=== PATIENT | male | born 1955 | race Caucasian/White ===

== ENCOUNTER 2017-06-06 07:47 | Day surgery (SDC) | payer OTHER ==
[~2017-06-06 07:47] MED LIST: Lactated Ringers 1,000 ML IV SCH; Sodium Chloride 0.9% 10 ML Syringe FLUSH PRN; Sodium Chloride 0.9% 2.5 ML Syringe FLUSH PRN
[2017-06-06] MEDS ORDERED: Propofol 200 MG/20 ML SDV ONE (08:24)
[2017-06-06] MEDS ORDERED: Lidocaine 2% 5 ML SDV ONE (08:24)
--- NOTE | 2017-06-06 08:38 | PCM.PREANE ---
Preanesthetic Assessment - Procedure Proposed Procedure: Colonoscopy - Anesthesia/Transfusion/Family Hx Anesthesia History: Prior Anesthesia Without Reaction Family History of Anesthesia Reaction: No Transfusion History: No Prior Transfusion(s) Intubation History: Unknown - Review of Systems General: No Symptoms Pulmonary: Other (sleep apnea) Cardiovascular: Other (HTN - onvalsartan/HCTZ + KCL, dyslipidemia) Gastrointestinal: Other (polyp in past) Neurological: No Symptoms Other: Reports: Diabetes (type II on meformin, invokana) - Physical Assessment NPO Status Date: 06/05/17 NPO Status Time: 22:00 O2 Sat by Pulse Oximetry: 96 Respiratory Rate: 16 Vital Signs: Last Vital Signs Temp 97.7 F 06/06/17 08:25 Pulse 74 06/06/17 08:25 Resp 16 06/06/17 08:25 BP 141/84 H 06/06/17 08:25 Pulse Ox 96 06/06/17 08:25 Height: 6 ft Weight: 228 lb ASA Class: 3 Mental Status: Alert & Oriented x3 Dentition: Reports: Normal Dentition Thyro-Mental Finger Breadths: 3 Mouth Opening Finger Breadths: 3 ROM/Head Extension: Full Lungs: Clear to Auscultation, Normal Respiratory Effort Cardiovascular: Regular Rate, Regular Rhythm, No Murmurs - Allergies Allergies/Adverse Reactions: Allergies Allergy/AdvReac Type Severity Reaction Status Date / Time dashawn inhibitors Allergy Cough Uncoded 06/01/17 09:25 - Blood Blood Available: No Product(s) Available: None - Anesthesia Plan Pre-Op Medication Ordered: None - Acknowledgements Anesthesia Type Planned: MAC Pt an Appropriate Candidate for the Planned Anesthesia: Yes Alternatives and Risks of Anesthesia Discussed w Pt/Guardian: Yes Pt/Guardian Understands and Agrees with Anesthesia Plan: Yes PreAnesthesia Questionnaire Other HEENT History: wears glasses Cardiovascular History: Reports: Hypertension Respiratory History: Reports: Sleep Apnea Other Respiratory History: uses CPAP Gastrointestinal History: Reports: Colon Polyp Musculoskeletal History: Reports: Fracture Other Musculoskeletal History: hx of fx ankle, toe, finger Endocrine/Metabolic History: Reports: Diabetes, Type II Dermatologic History: Reports: Other (See Below) Other Dermatologic History: rash on back - Past Surgical History HEENT Surgical History: Reports: Adenoidectomy, Tonsillectomy GI Surgical History: Reports: Colonoscopy Musculoskeletal Surgical History: Reports: Arthroscopic Knee - SUBSTANCE USE Smoking Status *Q: Never Smoker Second Hand Smoke Exposure: No Days Per Week of Alcohol Use: 2 Number of Drinks Per Day: 1 Total Drinks Per Week: 2 Recreational Drug Use History: No - HOME MEDS Home Medications: Home Meds Aspirin [[place] Aspirin] 81 mg PO DAILY 06/04/14 [History] Potassium Chloride [K-Tab ER] 20 mg PO DAILY 06/04/14 [History] Valsartan/Hydrochlorothiazide [Valsartan-Hctz 160-12.5 mg Tab] 1 tab PO DAILY [History] metFORMIN [Glucophage] 1,000 mg PO BID 06/04/14 [History] Canagliflozin [Invokana] 300 mg PO QAM 06/01/17 [History] Clotrimazole/Betamethasone Dip [Lotrisone Cream] 1 applic TOP BID PRN 06/01/17 [ History] Glucosamine/D3/Boswellia Stacy [Osteo Bi-Flex Tablet] 2 tab PO DAILY 06/01/17 [ History] Magnesium 250 mg PO DAILY 06/01/17 [History] Multivitamin [Men's Multi-Vitamin] 1 tab PO DAILY 06/01/17 [History] Tadalafil [Cialis] 10 - 20 mg PO ASDIRECTED PRN 06/01/17 [History] metFORMIN HCl [Metformin HCl] 1,000 mg PO BIDMEALS 06/01/17 [History] - CURRENT (IN HOUSE) MEDS Current Meds: Current Medications Lactated Ringer's (Ringers, Lactated) 1,000 mls @ 125 mls/hr IV ASDIRECTED TRU Last Admin: 06/06/17 08:20 Dose: 125 mls/hr Sodium Chloride (Saline Flush) 10 ml FLUSH ASDIRECTED PRN PRN Reason: Keep Vein Open Sodium Chloride (Saline Flush) 2.5 ml FLUSH ASDIRECTED PRN PRN Reason: Keep Vein Open Discontinued Medications Lidocaine (Xylocaine-Mpf 2%) Confirm Administered Dose 5 ml .ROUTE .STK-MED ONE Stop: 06/06/17 08:25 Propofol (Diprivan 20 Ml) Confirm Administered Dose 400 mg .ROUTE .STK-MED ONE Stop: 06/06/17 08:25
--- NOTE | 2017-06-06 09:58 | PCM.OPNOTE ---
- General Post-Op/Procedure Note Date of Surgery/Procedure: 06/06/17 Operative Procedure(s): Screening colonoscopy Findings: Diverticulosis Pre Op Diagnosis: History of colon polyp Post-Op Diagnosis: Diverticulosis Anesthesia Technique: General ET Tube Primary Surgeon: Nataly So Condition: Good
--- NOTE | 2017-06-06 10:25 | OR ---
SURGEON: KINGS CARBAJAL MD DATE OF PROCEDURE: 06/06/2017 PREOPERATIVE DIAGNOSIS: History of colon polyps. POSTOPERATIVE DIAGNOSIS: Diverticulosis. PROCEDURE PERFORMED: Screening colonoscopy. ANESTHESIA: MAC. INSTRUMENT USED: Olympus colonoscope. EXTENT OF EXAM: To the cecum. PREPARATION: Good. LIMITATIONS: None. INDICATIONS: The patient is a 61-year-old male, who presents for a 5-year followup. He was diagnosed with a colon tubular adenoma on his first colonoscopy at the age of 49. His followup colonoscopy at 54 was normal. He has had no changes in his bowel habits. We discussed the procedure, expected perioperative course, and risks including bleeding, infection, and/or perforation. The patient verbalized understanding and wishes to proceed. PROCEDURE IN DETAIL: The patient was brought into the endoscopy suite and placed in the left lower decubitus position. A time-out was completed verifying the patient's name, age, date of , allergies, and procedure to be performed. Monitored anesthesia care was induced and continuous oxygen was provided via nasal cannula throughout the procedure. After adequate sedation was achieved, a digital rectal exam was performed. This exam was within normal limits. A well-lubricated colonoscope was inserted into the rectum and advanced under direct visualization to the level of cecum. Cecum was identified by both visual and anatomic landmarks. A photograph was taken of the cecal cap as well as with the scope retroflexed within the cecum. The scope was then straightened out and fully withdrawn while examining the color, texture, anatomy, and integrity of the mucosa from the cecum to the anal canal. The patient was found to have diverticulosis throughout the distal colon. The scope was then brought into the rectum and retroflexed to allow visualization of the anal canal opening. This appeared normal and a photograph was taken. The scope was then straightened out and removed from the patient. The cecum to anus time was 9 minutes. The patient tolerated the procedure well and was taken to PACU in stable condition. ENDOSCOPIC DIAGNOSIS: Diverticulosis. RECOMMENDATIONS: Follow up in clinic in 2 weeks. NOAH WASHINGTON /[id number]
== END 2017-06-06 10:31 | disposition home or self-care (01) ==
LOC: MW.SDS 07:47
PROVIDERS: ATTEND Surgery
DX: Z12.11 Encounter for screening for malignant neoplasm of colon (principal); K57.30 Diverticulosis of large intestine without perforation or abscess without bleeding; I10 Essential (primary) hypertension; G47.31 Primary central sleep apnea; E11.9 Type 2 diabetes mellitus without complications; E66.9 Obesity, unspecified; Z68.31 Body mass index [BMI] 31.0-31.9, adult; N52.9 Male erectile dysfunction, unspecified; N17.9 Acute kidney failure, unspecified; B35.4 Tinea corporis; Z91.048 Other nonmedicinal substance allergy status; Z88.8 Allergy status to other drugs, medicaments and biological substances; Z79.82 Long term (current) use of aspirin; Z79.84 Long term (current) use of oral hypoglycemic drugs; Z79.899 Other long term (current) drug therapy; Z86.010 Personal history of colon polyps; Z90.89 Acquired absence of other organs; Z98.890 Other specified postprocedural states
CPT/HCPCS: 45378; J7120; 00810; 82962; J2704

== ENCOUNTER 2018-08-25 19:08 | Emergency (ER) | payer OTHER ==
[2018-08-25] MEDS ORDERED: Diphtheria,Pertussis(Acell),Tetanus Vaccine 0.5 ML Syringe ONE (19:44)
--- NOTE | 2018-08-25 19:50 | EDM.PDOC ---
ED HPI GENERAL MEDICAL PROBLEM - General Chief Complaint: Laceration Stated Complaint: CUT ON THUMB Time Seen by Provider: 08/25/18 19:39 - History of Present Illness INITIAL COMMENTS - FREE TEXT/NARRATIVE: HISTORY AND PHYSICAL: History of present illness: Patient 62-year-old white male presents with a concern of laceration to his first digit of his right hand he denies up-to-date tetanus he denies other trauma or concern Review of systems: As per history of present illness and below otherwise all systems reviewed and negative. Past medical history: As per history of present illness and as reviewed below otherwise noncontributory. Surgical history: As per history of present illness and as reviewed below otherwise noncontributory. Social history: No reported history of drug or alcohol abuse. Family history: As per history of present illness and as reviewed below otherwise noncontributory. Physical exam: HEENT: Atraumatic, normocephalic, pupils reactive, negative for conjunctival pallor or scleral icterus, mucous membranes moist, throat clear, neck supple, nontender, trachea midline. Lungs: Clear to auscultation, breath sounds equal bilaterally, chest nontender. Heart: S1S2, regular, negative for clicks, rubs, or JVD. Abdomen: Soft, nondistended, nontender. Negative for masses or hepatosplenomegaly. Negative for costovertebral tenderness. Pelvis: Stable nontender. Genitourinary: Deferred. Rectal: Deferred. Extremities: Patient has approximately 1.5 cm moderate laceration on the radial aspect of his first digit is no tendon involvement CMS neurovascular is unremarkable was good hemostasis Neuro: Awake, alert, oriented. Cranial nerves II through XII unremarkable. Cerebellum unremarkable. Motor and sensory unremarkable throughout. Exam nonfocal. Diagnostics: None Therapeutics: Tetanus was updated patient was anesthetized 1% lidocaine without epinephrine irrigated with copious amount 0.9 normal saline and closed with 4-0 nylon interrupted suture bacitracin was applied Impression: #1 right hand injury (laceration) Definitive disposition and diagnosis as appropriate pending reevaluation and review of above. - Related Data Allergies Allergy/AdvReac Type Severity Reaction Status Date / Time dashawn inhibitors Allergy Cough Uncoded 06/01/17 09:25 Home Meds: Home Meds Aspirin [[place] Aspirin] 81 mg PO DAILY 06/04/14 [History] Potassium Chloride [K-Tab ER] 20 mg PO DAILY 06/04/14 [History] Valsartan/Hydrochlorothiazide [Valsartan-Hctz 160-12.5 mg Tab] 1 tab PO DAILY [History] metFORMIN [Glucophage] 1,000 mg PO BID 06/04/14 [History] Canagliflozin [Invokana] 300 mg PO QAM 06/01/17 [History] Clotrimazole/Betamethasone Dip [Lotrisone Cream] 1 applic TOP BID PRN 06/01/17 [ History] Glucosamine/D3/Boswellia Stacy [Osteo Bi-Flex Tablet] 2 tab PO DAILY 06/01/17 [ History] Magnesium 250 mg PO DAILY 06/01/17 [History] Multivitamin [Men's Multi-Vitamin] 1 tab PO DAILY 06/01/17 [History] Tadalafil [Cialis] 10 - 20 mg PO ASDIRECTED PRN 06/01/17 [History] metFORMIN HCl [Metformin HCl] 1,000 mg PO BIDMEALS 06/01/17 [History] Past Medical History Other HEENT History: wears glasses Cardiovascular History: Reports: Hypertension Respiratory History: Reports: Sleep Apnea Other Respiratory History: uses CPAP Gastrointestinal History: Reports: Colon Polyp Musculoskeletal History: Reports: Fracture Other Musculoskeletal History: hx of fx ankle, toe, finger Endocrine/Metabolic History: Reports: Diabetes, Type II Dermatologic History: Reports: Other (See Below) Other Dermatologic History: rash on back - Past Surgical History HEENT Surgical History: Reports: Adenoidectomy, Tonsillectomy GI Surgical History: Reports: Colonoscopy Musculoskeletal Surgical History: Reports: Arthroscopic Knee ED ROS GENERAL - Review of Systems Review Of Systems: ROS reveals no pertinent complaints other than HPI. ED EXAM, SKIN/RASH Exam: See Below (See dictation) Course - Orders/Labs/Meds Meds: Medications Discontinued Medications Generic Name Dose Route Start Last Admin Trade Name Freq PRN Reason Stop Dose Admin Diphtheria/Tetanus/Acell Pertussis Confirm 08/25/18 19:44 Adacel Administered 08/25/18 19:45 Dose 0.5 ml .ROUTE .STK-MED ONE Lidocaine HCl Confirm 08/25/18 19:43 Xylocaine-Mpf 1% Administered 08/25/18 19:44 Dose 5 mls @ as directed .ROUTE .STK-MED ONE Departure - Departure Time of Disposition: 19:49 Disposition: Home, Self-Care 01 Condition: Good Clinical Impression: Hand injury - Discharge Information Referrals: PCP,Unknown [Primary Care Provider] - Additional Instructions: The following information is given to patients seen in the emergency department who are being discharged to home. This information is to outline your options for follow-up care. We provide all patients seen in our emergency department with a follow-up referral. The need for follow-up, as well as the timing and circumstances, are variable depending upon the specifics of your emergency department visit. If you don't have a primary care physician on staff, we will provide you with a referral. We always advise you to contact your personal physician following an emergency department visit to inform them of the circumstance of the visit and for follow-up with them and/or the need for any referrals to a consulting specialist. The emergency department will also refer you to a specialist when appropriate. This referral assures that you have the opportunity for followup care with a specialist. All of these measure are taken in an effort to provide you with optimal care, which includes your followup. Under all circumstances we always encourage you to contact your private physician who remains a resource for coordinating your care. When calling for followup care, please make the office aware that this follow-up is from your recent emergency room visit. If for any reason you are refused follow-up, please contact the [facility] emergency department at and asked to speak to the emergency department charge nurse. Wound care is discussed suture removal 10-14 days return as needed as discussed
[2018-08-25] MEDS ORDERED: Lidocaine HCl/PF 10 MG/ML SDV INJECT ONE (19:56)
[2018-08-25] MEDS ORDERED: Bacitracin Oint 1 GM U/D Packet TOP ONE (20:00)
== END 2018-08-25 20:10 | disposition home or self-care (01) ==
LOC: MW.ED 19:08
DX: S61.210A Laceration without foreign body of right index finger without damage to nail, initial encounter (principal); W45.8XXA Other foreign body or object entering through skin, initial encounter
CPT/HCPCS: 12001; 90471; 90715; 99282; J2001

== ENCOUNTER 2019-05-15 06:43 | Observation (INO) | payer OTHER ==
[~2019-05-15 06:43] MED LIST changes: -Sodium Chloride 0.9% 10 ML Syringe FLUSH PRN; -Sodium Chloride 0.9% 2.5 ML Syringe FLUSH PRN; +ceFAZolin 2 GM in Premix Bag 1 BAG IV ONE
[2019-05-15] MEDS ORDERED: fentaNYL 100 MCG/2 ML SDV ONE (07:13)
[2019-05-15] MEDS ORDERED: Midazolam 1 MG/ML 2 ML SDV ONE (07:13)
[2019-05-15] MEDS ORDERED: Propofol 200 MG/20 ML SDV ONE ×2 (07:13→09:13)
[2019-05-15] MEDS ORDERED: Ondansetron 4 MG/2 ML SDV ONE (07:22)
--- NOTE | 2019-05-15 07:39 | PCM.PREANE ---
Preanesthetic Assessment - Anesthesia/Transfusion/Family Hx Anesthesia History: Prior Anesthesia Without Reaction Family History of Anesthesia Reaction: No Transfusion History: No Prior Transfusion(s) Intubation History: Unknown - Review of Systems General: No Symptoms Pulmonary: No Symptoms Cardiovascular: No Symptoms Gastrointestinal: No Symptoms Neurological: No Symptoms Other: Reports: None - Physical Assessment NPO Status Date: 05/14/19 NPO Status Time: 22:00 Vital Signs: Last Vital Signs Temp 98.4 F 05/15/19 06:50 Pulse 76 05/15/19 06:50 Resp 18 05/15/19 06:50 BP 144/88 H 05/15/19 06:50 Pulse Ox 94 L 05/15/19 06:50 Height: 6 ft Weight: 103.419 kg ASA Class: 3 Mental Status: Alert & Oriented x3 Airway Class: Mallampati = 1 Dentition: Reports: Normal Dentition ROM/Head Extension: Full Lungs: Clear to Auscultation, Normal Respiratory Effort Cardiovascular: Regular Rate, Regular Rhythm - Allergies Allergies/Adverse Reactions: Allergies Allergy/AdvReac Type Severity Reaction Status Date / Time dashawn inhibitors Allergy Cough Uncoded 05/13/19 10:23 - Blood Blood Available: No - Anesthesia Plan Pre-Op Medication Ordered: None - Acknowledgements Anesthesia Type Planned: Spinal Pt an Appropriate Candidate for the Planned Anesthesia: Yes Alternatives and Risks of Anesthesia Discussed w Pt/Guardian: Yes Pt/Guardian Understands and Agrees with Anesthesia Plan: Yes Additional Comments: PMH: no CAD, neg cath last year, has CENTRAL sleep apnea, uses Bipap every night PLAN: spinal; with sedation PreAnesthesia Questionnaire HEENT History: Reports: Other (See Below) Other HEENT History: wears glasses Cardiovascular History: Reports: Hypertension, Other (See Below) Other Cardiovascular History: hx of Angiogram- no stents Respiratory History: Reports: Sleep Apnea Other Respiratory History: Central Sleep Apnea- uses CPAP Gastrointestinal History: Reports: Colon Polyp, Diverticulosis Genitourinary History: Reports: BPH, Renal Calculus Musculoskeletal History: Reports: Fracture Other Musculoskeletal History: hx of fx ankle x2, arthritis in hands Endocrine/Metabolic History: Reports: Diabetes, Type II, Obesity/BMI 30+ Dermatologic History: Reports: Other (See Below) Other Dermatologic History: currently has a rash on his back- thinks it is from medications - Past Surgical History Head Surgeries/Procedures: Reports: None HEENT Surgical History: Reports: Adenoidectomy, Tonsillectomy GI Surgical History: Reports: Colonoscopy Musculoskeletal Surgical History: Reports: Arthroscopic Knee - SUBSTANCE USE Smoking Status *Q: Never Smoker Recreational Drug Use History: No - HOME MEDS Home Medications: Home Meds Aspirin [[place] Aspirin] 81 mg PO DAILY 06/04/14 [History] Potassium Chloride [K-Tab ER] 20 mg PO DAILY 06/04/14 [History] Valsartan/Hydrochlorothiazide [Valsartan-Hctz 160-12.5 mg Tab] 1 tab PO DAILY [History] metFORMIN [Glucophage] 1,000 mg PO BID 06/04/14 [History] Glucosamine/D3/Boswellia Stacy [Osteo Bi-Flex Tablet] 2 tab PO DAILY 06/01/17 [ History] Magnesium 250 mg PO DAILY 06/01/17 [History] Multivitamin [Men's Multi-Vitamin] 1 tab PO DAILY 06/01/17 [History] Tadalafil [Cialis] 20 mg PO ASDIRECTED PRN 06/01/17 [History] Empagliflozin [Jardiance] 25 mg PO QAM 05/13/19 [History] Naproxen Sodium [Aleve] 220 mg PO BID 05/13/19 [History] Pioglitazone HCl 15 mg PO DAILY 05/13/19 [History] Tamsulosin HCl 0.4 mg PO BEDTIME 05/13/19 [History] - CURRENT (IN HOUSE) MEDS Current Meds: Current Medications Lactated Ringer's (Ringers, Lactated) 1,000 mls @ 100 mls/hr IV ASDIRECTED TRU Last Admin: 05/15/19 07:10 Dose: 100 mls/hr Discontinued Medications Fentanyl (Sublimaze) Confirm Administered Dose 100 mcg .ROUTE .STK-MED ONE Stop: 05/15/19 07:14 Cefazolin Sodium/Dextrose 2 gm (/ Premix) 50 mls @ 100 mls/hr IV ONCALL ONE Stop: 05/15/19 00:30 Lidocaine HCl (Xylocaine-Mpf 1%) Confirm Administered Dose 5 ml .ROUTE .STK-MED ONE Stop: 05/15/19 07:17 Midazolam HCl (Versed 1 Mg/Ml) Confirm Administered Dose 2 mg .ROUTE .STK-MED ONE Stop: 05/15/19 07:14 Ondansetron HCl (Zofran) Confirm Administered Dose 4 mg .ROUTE .STK-MED ONE Stop: 05/15/19 07:23 Propofol (Diprivan 20 Ml) Confirm Administered Dose 600 mg .ROUTE .STK-MED ONE Stop: 05/15/19 07:14
[2019-05-15] MEDS ORDERED: ceFAZolin 1 GM Vial ONE (07:55)
[2019-05-15] MEDS ORDERED: Sodium Chloride 0.9% 20 ML ONE (07:55)
[2019-05-15] MEDS ORDERED: ePHEDrine 50 MG/ML SDV ONE (08:37)
[2019-05-15] MEDS ORDERED: Belladonna Alkaloids/Opium 16.2-30 MG Supp RECTAL PRN (09:52)
[2019-05-15] MEDS ORDERED: D5 1/2 NS w/ 20 mEq/L KCl 1,000 ML IV SCH (10:00)
[2019-05-15] MEDS ORDERED: Lactated Ringers 1,000 ML IV SCH (10:15)
[2019-05-15 10:38] LABS: POTASSIUM,K 4.4 mmol/L (3.5-5.1)
--- NOTE | 2019-05-15 11:36 | PCM.POSTAN ---
POST ANESTHESIA ASSESSMENT - MENTAL STATUS Mental Status: Alert, Oriented - VITAL SIGNS Vital Signs: Last Vital Signs Temp 98.2 F 05/15/19 09:49 Pulse 62 05/15/19 10:14 Resp 10 L 05/15/19 10:14 BP 122/77 05/15/19 10:14 Pulse Ox 99 05/15/19 10:14 - RESPIRATORY Respiratory Status: Respiratory Rate WNL, Airway Patent, O2 Saturation Stable - CARDIOVASCULAR CV Status: Pulse Rate WNL, Blood Pressure Stable - GASTROINTESTINAL GI Status: No Symptoms - POST OP HYDRATION Hydration Status: Adequate & Stable
--- NOTE | 2019-05-15 13:24 | PCM.CONS ---
H&P History of Present Illness - General Date of Service: 05/15/19 Admit Problem/Dx: Admission Diagnosis/Problem Admission Diagnosis/Problem Urinary retention due to benign prostatic hyperplasia - History of Present Illness Initial Comments - Free Text/Narative: 63 yo male with pmh of BPH, type 2 DM, HTN, and central sleep apnea who underwent TURP by Dr. Askew today. He reports he was in his usual stat of health prior to the procedure. 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 - Related Data Allergies/Adverse Reactions: Allergies Allergy/AdvReac Type Severity Reaction Status Date / Time dashawn inhibitors Allergy Cough Uncoded 05/15/19 12:01 Home Medications: Home Meds Aspirin [[place] Aspirin] 81 mg PO DAILY 06/04/14 [History] Potassium Chloride [K-Tab ER] 20 mg PO DAILY 06/04/14 [History] Valsartan/Hydrochlorothiazide [Valsartan-Hctz 160-12.5 mg Tab] 1 tab PO DAILY [History] metFORMIN [Glucophage] 1,000 mg PO BID 06/04/14 [History] Glucosamine/D3/Boswellia Stacy [Osteo Bi-Flex Tablet] 2 tab PO DAILY 06/01/17 [ History] Magnesium 250 mg PO DAILY 06/01/17 [History] Multivitamin [Men's Multi-Vitamin] 1 tab PO DAILY 06/01/17 [History] Tadalafil [Cialis] 20 mg PO ASDIRECTED PRN 06/01/17 [History] Empagliflozin [Jardiance] 25 mg PO QAM 05/13/19 [History] Naproxen Sodium [Aleve] 220 mg PO BID 05/13/19 [History] Pioglitazone HCl 15 mg PO DAILY 05/13/19 [History] Tamsulosin HCl 0.4 mg PO BEDTIME 05/13/19 [History] Past Medical History HEENT History: Reports: Other (See Below) Other HEENT History: wears glasses Cardiovascular History: Reports: Hypertension, Other (See Below) Other Cardiovascular History: hx of Angiogram- no stents Respiratory History: Reports: Sleep Apnea Other Respiratory History: Central Sleep Apnea- uses CPAP Gastrointestinal History: Reports: Colon Polyp, Diverticulosis Genitourinary History: Reports: BPH, Renal Calculus Musculoskeletal History: Reports: Fracture Other Musculoskeletal History: hx of fx ankle x2, arthritis in hands Endocrine/Metabolic History: Reports: Diabetes, Type II, Obesity/BMI 30+ Dermatologic History: Reports: Other (See Below) Other Dermatologic History: currently has a rash on his back- thinks it is from medications - Past Surgical History Head Surgeries/Procedures: Reports: None HEENT Surgical History: Reports: Adenoidectomy, Tonsillectomy GI Surgical History: Reports: Colonoscopy Musculoskeletal Surgical History: Reports: Arthroscopic Knee Social & Family History - Family History Family Medical History: Noncontributory - Tobacco Use Smoking Status *Q: Never Smoker - Recreational Drug Use Recreational Drug Use: No Drug Use in Last 12 Months: No H&P Review of Systems - Review of Systems: Review Of Systems: Comprehensive ROS is negative, except as noted in HPI. Exam - Exam Exam: See Below - Vital Signs Vital Signs: Last Vital Signs Temp 36.8 C 05/15/19 09:49 Pulse 62 05/15/19 10:14 Resp 10 L 05/15/19 10:14 BP 122/77 05/15/19 10:14 Pulse Ox 99 05/15/19 10:14 Weight: 103.419 kg - Exam General: Alert, Oriented HEENT: Mucosa Moist & [place] Neck: Supple Lungs: Clear to Auscultation, Normal Respiratory Effort Cardiovascular: Regular Rate, Regular Rhythm GI/Abdominal Exam: Soft, Non-Tender, No Distention Extremities: Non-Tender, No Pedal Edema Skin: Warm, Dry, Intact Neurological: No: Focal Deficit - Patient Data Lab Results Last 24 hrs: Laboratory Results - last 24 hr 05/15/19 05/15/19 Range/Units 10:13 10:13 Hgb 15.7 (13.0-17.0) g/dL Sodium 143 (136-148) mmol/L Potassium 4.4 (3.5-5.1) mmol/L Result Diagrams: 05/15/19 10:13 05/15/19 10:13 Consult PN Assessment/Plan Procedures: Procedures ALANINE AMINO (ALT) (SGPT) (09/09/15) ASSAY OF CK (CPK) (06/04/14) ASSAY OF LIPASE (06/04/14) ASSAY OF TROPONIN QUANT (06/04/14) ASSAY THYROID STIM HORMONE (11/07/17) CARDIOVASCULAR STRESS TEST (11/06/17) CHEST X-RAY 1 VIEW FRONTAL (06/04/14) COMPLETE CBC AUTOMATED (11/07/17) COMPLETE CBC W/AUTO DIFF WBC (06/04/14) COMPREHEN METABOLIC PANEL (11/11/18) CREATINE MB FRACTION (06/04/14) CT HEAD/BRAIN W/O DYE (06/04/14) DIAGNOSTIC COLONOSCOPY (06/06/17) ELECTROCARDIOGRAM TRACING (06/04/14) EMERGENCY DEPT VISIT (08/25/18) EMERGENCY DEPT VISIT (06/04/14) EMERGENCY DEPT VISIT (10/14/13) GLYCOSYLATED HEMOGLOBIN TEST (11/11/18) HT MUSCLE IMAGE SPECT MULT (11/06/17) HYDRATE IV INFUSION ADD-ON (06/04/14) IMMUNIZATION ADMIN (08/25/18) INFLUENZA A/B AG IA (06/04/14) LIPID PANEL (11/11/18) METABOLIC PANEL TOTAL CA (07/11/17) ROUTINE VENIPUNCTURE (11/11/18) RPR S/N/AX/GEN/TRNK 2.5CM/< (08/25/18) TDAP VACCINE 7 YRS/> IM (08/25/18) THER/PROPH/DIAG INJ IV PUSH (06/04/14) TX/PRO/DX INJ NEW DRUG ADDON (06/04/14) UR ALBUMIN SEMIQUANTITATIVE (01/02/17) URINALYSIS AUTO W/SCOPE (03/04/19) VIT D 1 25-DIHYDROXY (06/08/15) X-RAY EXAM CHEST 2 VIEWS (10/03/17) X-RAY EXAM OF HAND (10/14/13) Problem List Initiated/Reviewed/Updated: No My Orders Last 24 Hours: My Active Orders 05/15/19 13:05 CPAP Noctural Home [RT BiPAP/CPAP] [RC] ASDIRECTED 05/15/19 17:00 Insulin Aspart [NovoLOG] See Protocol SUBCUT TIDAC Plan: 63 yo male who is s/p TURP. Central sleep apnea: patient brought home CPAP to be used when sleeping HTN: resume valsartan/HCTZ DM: on sliding scale insulin and diabetic diet.
[2019-05-15] MEDS: Bacitracin Oint 28.35 GM Tube TOP SCH ×2 (14:42→21:16)
--- NOTE | 2019-05-15 15:58 | OR ---
SURGEON: Ulises Askew M.D. DATE OF PROCEDURE: 05/15/2019 PREOPERATIVE DIAGNOSIS: BPH with obstructive urinary symptoms. POSTOPERATIVE DIAGNOSIS: BPH with obstructive urinary symptoms. OPERATION: Transurethral resection of the prostate. DESCRIPTION OF PROCEDURE: The patient was given spinal anesthesia, placed in dorsal lithotomy position, prepped and draped in sterile drapes. The 26-[place] resectoscope was introduced in the bladder without difficulty. The resection was started in the usual manner, initially with median lobe and then going on anteriorly and laterally. At the end of the resection, all the prostatic chips were removed. Both ureteral orifices were intact. The area of the external sphincter was intact. A 22 three-way Alexandra catheter with 60 mL in the balloon was left in the bladder connected to TUR drip. The patient tolerated the procedure well. Estimated blood loss 200 mL. The patient was moved to recovery room in good condition. SADIA / FELIX /[id number]
[2019-05-15] MEDS: Insulin Aspart 100 Units/ML 3 ML Pen SUBCUT SCH (17:19)
[2019-05-15] MEDS: metFORMIN 500 MG Tab PO SCH (21:12)
[2019-05-15] MEDS: Nitrofurantoin Monohydrate/Macrocrystalline 100 MG Cap PO SCH (21:12)
[2019-05-15] MEDS: Docusate Sodium 100 MG Cap PO SCH (21:12)
[2019-05-16] MEDS: Bacitracin Oint 28.35 GM Tube TOP SCH ×3 (06:40→22:00)
[2019-05-16] MEDS: Insulin Aspart 100 Units/ML 3 ML Pen SUBCUT SCH ×3 (06:41→17:17)
--- NOTE | 2019-05-16 07:35 | PCM48HPAN ---
Post Anesthesia Note - EVALUATION WITHIN 48HRS OF ANESTHETIC Vital Signs in Normal Range: Yes Patient Participated in Evaluation: Yes Respiratory Function Stable: Yes Airway Patent: Yes Cardiovascular Function Stable: Yes Hydration Status Stable: Yes Pain Control Satisfactory: Yes Nausea and Vomiting Control Satisfactory: Yes Mental Status Recovered: Yes Vital Signs: Last Vital Signs Temp 36.6 C 05/16/19 03:20 Pulse 69 05/16/19 03:20 Resp 18 05/16/19 03:20 BP 126/76 05/16/19 06:30 Pulse Ox 93 L 05/16/19 03:20 - COMMENTS/OBSERVATIONS Free Text/Narrative:: Doing well. No problems noted.
[2019-05-16] MEDS ORDERED: Non-Formulary Medication 1 Each (Empagliflozin [Jardiance] 25 MG) PO SCH (09:00)
[2019-05-16] MEDS: Docusate Sodium 100 MG Cap PO SCH ×2 (09:16→20:31)
[2019-05-16] MEDS: metFORMIN 500 MG Tab PO SCH ×2 (09:16→20:30)
[2019-05-16] MEDS: Nitrofurantoin Monohydrate/Macrocrystalline 100 MG Cap PO SCH ×2 (09:22→20:30)
--- NOTE | 2019-05-16 09:57 | PCM.CONSN ---
- General Info Date of Service: 05/16/19 Admission Dx/Problem (Free Text): Admission Diagnosis/Problem Admission Diagnosis/Problem Urinary retention due to benign prostatic hyperplasia Subjective Update: Doing well this morning, No complaints, didn't sleep well due to monitor beeping. No chest pain or SOB. - Review of Systems General: Reports: No Symptoms. Denies: Weakness Pulmonary: Reports: No Symptoms. Denies: Shortness of Breath Cardiovascular: Reports: No Symptoms. Denies: Chest Pain Neurological: Reports: No Symptoms Psychiatric: Reports: No Symptoms - Patient Data Vitals - Most Recent: Last Vital Signs Temp 97.3 F 05/16/19 08:00 Pulse 65 05/16/19 08:00 Resp 16 05/16/19 08:00 BP 126/76 05/16/19 08:00 Pulse Ox 96 05/16/19 08:00 Weight - Most Recent: 103.419 kg I&O - Last 24 Hours: Intake & Output 05/15/19 05/16/19 05/16/19 22:59 06:59 14:59 Intake Total 450 1200 Balance 450 1200 Lab Results Last 24 Hours: Laboratory Results - last 24 hr 05/15/19 05/15/19 05/15/19 Range/Units 07:17 10:13 10:13 Hgb 15.7 (13.0-17.0) g/dL Sodium 143 (136-148) mmol/L Potassium 4.4 (3.5-5.1) mmol/L POC Glucose 117 H (60-110) mg/dL 05/15/19 05/16/19 Range/Units 17:04 06:32 Hgb (13.0-17.0) g/dL Sodium (136-148) mmol/L Potassium (3.5-5.1) mmol/L POC Glucose 87 112 H (60-110) mg/dL Med Orders - Current: Current Medications Bacitracin (Bacitracin Oint) 1 gm TOP TID [facility] Last Admin: 05/16/19 06:40 Dose: 1 gm Docusate Sodium (Colace) 100 mg PO BID [facility] Last Admin: 05/16/19 09:16 Dose: 100 mg Lactated Ringer's (Ringers, Lactated) 1,000 mls @ 150 mls/hr IV ASDIRECTED [facility] Last Admin: 05/15/19 11:47 Dose: 150 mls/hr Insulin Aspart (Novolog) 0 unit SUBCUT TIDAC [facility]; Protocol Last Admin: 05/16/19 06:41 Dose: Not Given Metformin HCl (Glucophage) 1,000 mg PO BID [facility] Last Admin: 05/16/19 09:16 Dose: 1,000 mg Nitrofurantoin Macrocrystals (Macrobid) 100 mg PO BID [facility] Stop: 05/17/19 23:59 Last Admin: 05/16/19 09:22 Dose: 100 mg Non-Formulary Medication (Empagliflozin [Jardiance]) 25 mg PO QAM [facility] Last Admin: 05/16/19 09:20 Dose: 25 mg Non-Formulary Medication (Valsartan/Hydrochlorothiazide [Valsartan-Hctz 160- 12.5 Mg Tab]) 1 tab PO DAILY [facility] Last Admin: 05/16/19 09:20 Dose: 1 tab Discontinued Medications Belladonna Alkaloids/Opium (B & O Supprettes No. 15a) 1 supp RECTAL Q6H PRN PRN Reason: Bladder Spasms Cefazolin Sodium (Ancef) Confirm Administered Dose 2 gm .ROUTE .STK-MED ONE Stop: 05/15/19 07:56 Ephedrine Sulfate (Ephedrine Sulfate) Confirm Administered Dose 50 mg .ROUTE .STK-MED ONE Stop: 05/15/19 08:38 Fentanyl (Sublimaze) Confirm Administered Dose 100 mcg .ROUTE .STK-MED ONE Stop: 05/15/19 07:14 Lactated Ringer's (Ringers, Lactated) 1,000 mls @ 100 mls/hr IV ASDIRECTED [facility] Last Admin: 05/15/19 07:10 Dose: 100 mls/hr Cefazolin Sodium/Dextrose 2 gm (/ Premix) 50 mls @ 100 mls/hr IV ONCALL ONE Stop: 05/15/19 00:30 Last Admin: 05/15/19 18:17 Dose: Not Given Sodium Chloride (Normal Saline) Confirm Administered Dose 20 mls @ as directed .ROUTE .STK-MED ONE Stop: 05/15/19 07:56 Potassium Chloride/Dextrose/Sod Cl (D5 1/2 Ns W/ 20 Meq/L Kcl) 1,000 mls @ 125 mls/hr IV ASDIRECTED [facility] Lidocaine HCl (Xylocaine-Mpf 1%) Confirm Administered Dose 5 ml .ROUTE .STK-MED ONE Stop: 05/15/19 07:17 Midazolam HCl (Versed 1 Mg/Ml) Confirm Administered Dose 2 mg .ROUTE .STK-MED ONE Stop: 05/15/19 07:14 Ondansetron HCl (Zofran) Confirm Administered Dose 4 mg .ROUTE .STK-MED ONE Stop: 05/15/19 07:23 Propofol (Diprivan 20 Ml) Confirm Administered Dose 600 mg .ROUTE .STK-MED ONE Stop: 05/15/19 07:14 Propofol (Diprivan 20 Ml) Confirm Administered Dose 200 mg .ROUTE .STK-MED ONE Stop: 05/15/19 09:14 - Exam Quality Assessment: Urine Catheter. No: Supplemental Oxygen General: Alert, Oriented, Cooperative Lungs: Clear to Auscultation, Normal Respiratory Effort Cardiovascular: Regular Rate, Regular Rhythm GI/Abdominal Exam: Normal Bowel Sounds, Soft, Non-Tender Extremities: Normal Inspection, Normal Range of Motion, Non-Tender, No Pedal Edema Neurological: No New Focal Deficit Psy/Mental Status: Alert, Normal Affect, Normal Mood Consult PN Assessment/Plan POD#: 1 Procedures: Procedures ALANINE AMINO (ALT) (SGPT) (09/09/15) ASSAY OF CK (CPK) (06/04/14) ASSAY OF LIPASE (06/04/14) ASSAY OF TROPONIN QUANT (06/04/14) ASSAY THYROID STIM HORMONE (11/07/17) CARDIOVASCULAR STRESS TEST (11/06/17) CHEST X-RAY 1 VIEW FRONTAL (06/04/14) COMPLETE CBC AUTOMATED (11/07/17) COMPLETE CBC W/AUTO DIFF WBC (05/13/19) COMPREHEN METABOLIC PANEL (11/11/18) CREATINE MB FRACTION (06/04/14) CT HEAD/BRAIN W/O DYE (06/04/14) DIAGNOSTIC COLONOSCOPY (06/06/17) ELECTROCARDIOGRAM TRACING (05/13/19) EMERGENCY DEPT VISIT (08/25/18) EMERGENCY DEPT VISIT (06/04/14) EMERGENCY DEPT VISIT (10/14/13) GLYCOSYLATED HEMOGLOBIN TEST (05/13/19) HT MUSCLE IMAGE SPECT MULT (11/06/17) HYDRATE IV INFUSION ADD-ON (06/04/14) IMMUNIZATION ADMIN (08/25/18) INFLUENZA A/B AG IA (06/04/14) LIPID PANEL (11/11/18) METABOLIC PANEL TOTAL CA (05/13/19) ROUTINE VENIPUNCTURE (05/13/19) RPR S/N/AX/GEN/TRNK 2.5CM/< (08/25/18) TDAP VACCINE 7 YRS/> IM (08/25/18) THER/PROPH/DIAG INJ IV PUSH (06/04/14) TX/PRO/DX INJ NEW DRUG ADDON (06/04/14) UR ALBUMIN SEMIQUANTITATIVE (01/02/17) URINALYSIS AUTO W/SCOPE (05/13/19) VIT D 1 25-DIHYDROXY (06/08/15) X-RAY EXAM CHEST 2 VIEWS (10/03/17) X-RAY EXAM OF HAND (10/14/13) (1) S/P TURP SNOMED Code(s): 294537593, 50130777, 058128591 Code(s): Z90.79 - ACQUIRED ABSENCE OF OTHER GENITAL ORGAN(S) Current Visit : Yes (2) Central sleep apnea Current Visit: Yes (3) HTN (hypertension) SNOMED Code(s): 98150689 Code(s): I10 - ESSENTIAL (PRIMARY) HYPERTENSION Current Visit: Yes (4) DM (diabetes mellitus) SNOMED Code(s): 57742349 Code(s): E11.9 - TYPE 2 DIABETES MELLITUS WITHOUT COMPLICATIONS Current Visit: Yes Problem List Initiated/Reviewed/Updated: Yes Plan: 63 yo male who is s/p TURP. Medical managment consult placed for Hospitalist service. 1. S/P TURP: Orders per Dr Askew. 2. Central sleep apnea: Continue CPAP with sleep 3. HTN: BP stable continue Valsartan/HCTZ 4. DM: BS stable. Conitnue on sliding scale insulin and diabetic diet.
[2019-05-16] MEDS ORDERED: Bisacodyl 10 MG Supp RECTAL ONE (10:18)
[2019-05-17 06:54] LABS: CARBON DIOXIDE,CO2 27.3 mmol/L (21.0-32.0); POTASSIUM,K 4.3 mmol/L (3.5-5.1)
[2019-05-17] MEDS: Insulin Aspart 100 Units/ML 3 ML Pen SUBCUT SCH ×2 (07:41→12:11)
[2019-05-17] MEDS: Bacitracin Oint 28.35 GM Tube TOP SCH (07:42)
[2019-05-17] MEDS: metFORMIN 500 MG Tab PO SCH (08:55)
[2019-05-17] MEDS: Docusate Sodium 100 MG Cap PO SCH (08:55)
[2019-05-17] MEDS: Nitrofurantoin Monohydrate/Macrocrystalline 100 MG Cap PO SCH (08:55)
--- NOTE | 2019-05-17 14:16 | PCM.CONSN ---
<Luis Blanco M - Last Filed: 05/17/19 14:16> - General Info Date of Service: 05/17/19 Subjective Update: No complaints at bedside this morning. - Patient Data Vitals - Most Recent: Last Vital Signs Temp 98.5 F 05/17/19 12:00 Pulse 74 05/17/19 12:00 Resp 18 05/17/19 12:00 BP 157/84 H 05/17/19 12:00 Pulse Ox 100 05/17/19 12:00 Weight - Most Recent: 103.419 kg I&O - Last 24 Hours: Intake & Output 05/16/19 05/17/19 05/17/19 22:59 06:59 14:59 Intake Total 3500 850 Output Total 2300 3200 Balance 1200 -2350 Lab Results Last 24 Hours: Laboratory Results - last 24 hr 05/16/19 05/17/19 05/17/19 Range/Units 16:24 06:25 06:25 WBC 8.09 (4.0-11.0) K/uL RBC 5.17 (4.50-5.90) M/uL Hgb 15.9 (13.0-17.0) g/dL Hct 46.9 (38.0-50.0) % MCV 90.7 (80.0-98.0) fL MCH 30.8 (27.0-32.0) pg MCHC 33.9 (31.0-37.0) g/dL RDW Std Deviation 43.6 (28.0-62.0) fl RDW Coeff of Christnia 13 (11.0-15.0) % Plt Count 152 (150-400) K/uL MPV 11.10 (7.40-12.00) fL Neut % (Auto) 64.3 (48.0-80.0) % Lymph % (Auto) 19.7 (16.0-40.0) % [place] % (Auto) 12.7 (0.0-15.0) % Eos % (Auto) 3.1 (0.0-7.0) % Baso % (Auto) 0.2 (0.0-1.5) % Neut # (Auto) 5.2 (1.4-5.7) K/uL Lymph # (Auto) 1.6 (0.6-2.4) K/uL [place] # (Auto) 1.0 H (0.0-0.8) K/uL Eos # (Auto) 0.3 (0.0-0.7) K/uL Baso # (Auto) 0.0 (0.0-0.1) K/uL Nucleated RBC % 0.0 /100WBC Nucleated RBCs # 0 K/uL Sodium 141 (136-148) mmol/L Potassium 4.3 (3.5-5.1) mmol/L Chloride 104 (98-107) mmol/L Carbon Dioxide 27.3 (21.0-32.0) mmol/L Anion Gap 14.0 POC Glucose 105 (60-110) mg/dL 05/17/19 05/17/19 Range/Units 06:26 12:05 WBC (4.0-11.0) K/uL RBC (4.50-5.90) M/uL Hgb (13.0-17.0) g/dL Hct (38.0-50.0) % MCV (80.0-98.0) fL MCH (27.0-32.0) pg MCHC (31.0-37.0) g/dL RDW Std Deviation (28.0-62.0) fl RDW Coeff of Christina (11.0-15.0) % Plt Count (150-400) K/uL MPV (7.40-12.00) fL Neut % (Auto) (48.0-80.0) % Lymph % (Auto) (16.0-40.0) % [place] % (Auto) (0.0-15.0) % Eos % (Auto) (0.0-7.0) % Baso % (Auto) (0.0-1.5) % Neut # (Auto) (1.4-5.7) K/uL Lymph # (Auto) (0.6-2.4) K/uL [place] # (Auto) (0.0-0.8) K/uL Eos # (Auto) (0.0-0.7) K/uL Baso # (Auto) (0.0-0.1) K/uL Nucleated RBC % /100WBC Nucleated RBCs # K/uL Sodium (136-148) mmol/L Potassium (3.5-5.1) mmol/L Chloride (98-107) mmol/L Carbon Dioxide (21.0-32.0) mmol/L Anion Gap POC Glucose 110 87 (60-110) mg/dL Med Orders - Current: Current Medications Bacitracin (Bacitracin Oint) 1 gm TOP TID [facility] Last Admin: 05/17/19 07:42 Dose: 1 gm Docusate Sodium (Colace) 100 mg PO BID [facility] Last Admin: 05/17/19 08:55 Dose: 100 mg Lactated Ringer's (Ringers, Lactated) 1,000 mls @ 150 mls/hr IV ASDIRECTED [facility] Last Admin: 05/15/19 11:47 Dose: 150 mls/hr Insulin Aspart (Novolog) 0 unit SUBCUT TIDAC [facility]; Protocol Last Admin: 05/17/19 12:11 Dose: Not Given Metformin HCl (Glucophage) 1,000 mg PO BID [facility] Last Admin: 05/17/19 08:55 Dose: 1,000 mg Nitrofurantoin Macrocrystals (Macrobid) 100 mg PO BID [facility] Stop: 05/17/19 23:59 Last Admin: 05/17/19 08:55 Dose: 100 mg Non-Formulary Medication (Empagliflozin [Jardiance]) 25 mg PO QAM [facility] Last Admin: 05/16/19 09:20 Dose: 25 mg Non-Formulary Medication (Valsartan/Hydrochlorothiazide [Valsartan-Hctz 160- 12.5 Mg Tab]) 1 tab PO DAILY [facility] Last Admin: 05/16/19 09:20 Dose: 1 tab Discontinued Medications Belladonna Alkaloids/Opium (B & O Supprettes No. 15a) 1 supp RECTAL Q6H PRN PRN Reason: Bladder Spasms Bisacodyl (Dulcolax) 10 mg RECTAL ONETIME ONE Stop: 05/16/19 10:19 Last Admin: 05/16/19 10:42 Dose: 10 mg Cefazolin Sodium (Ancef) Confirm Administered Dose 2 gm .ROUTE .STK-MED ONE Stop: 05/15/19 07:56 Ephedrine Sulfate (Ephedrine Sulfate) Confirm Administered Dose 50 mg .ROUTE .STK-MED ONE Stop: 05/15/19 08:38 Fentanyl (Sublimaze) Confirm Administered Dose 100 mcg .ROUTE .STK-MED ONE Stop: 05/15/19 07:14 Lactated Ringer's (Ringers, Lactated) 1,000 mls @ 100 mls/hr IV ASDIRECTED [facility] Last Admin: 05/15/19 07:10 Dose: 100 mls/hr Cefazolin Sodium/Dextrose 2 gm (/ Premix) 50 mls @ 100 mls/hr IV ONCALL ONE Stop: 05/15/19 00:30 Last Admin: 05/15/19 18:17 Dose: Not Given Sodium Chloride (Normal Saline) Confirm Administered Dose 20 mls @ as directed .ROUTE .STK-MED ONE Stop: 05/15/19 07:56 Potassium Chloride/Dextrose/Sod Cl (D5 1/2 Ns W/ 20 Meq/L Kcl) 1,000 mls @ 125 mls/hr IV ASDIRECTED [facility] Lidocaine HCl (Xylocaine-Mpf 1%) Confirm Administered Dose 5 ml .ROUTE .STK-MED ONE Stop: 05/15/19 07:17 Midazolam HCl (Versed 1 Mg/Ml) Confirm Administered Dose 2 mg .ROUTE .STK-MED ONE Stop: 05/15/19 07:14 Ondansetron HCl (Zofran) Confirm Administered Dose 4 mg .ROUTE .STK-MED ONE Stop: 05/15/19 07:23 Propofol (Diprivan 20 Ml) Confirm Administered Dose 600 mg .ROUTE .STK-MED ONE Stop: 05/15/19 07:14 Propofol (Diprivan 20 Ml) Confirm Administered Dose 200 mg .ROUTE .STK-MED ONE Stop: 05/15/19 09:14 - Exam General: Alert, Oriented, Cooperative, No Acute Distress Lungs: Clear to Auscultation, Normal Respiratory Effort Cardiovascular: Regular Rate, Regular Rhythm GI/Abdominal Exam: Normal Bowel Sounds, Soft, Non-Tender, No Distention Extremities: Normal Inspection, Pedal Edema Skin: Warm, Dry, Intact Consult PN Assessment/Plan Procedures: Procedures ALANINE AMINO (ALT) (SGPT) (09/09/15) ASSAY OF CK (CPK) (06/04/14) ASSAY OF LIPASE (06/04/14) ASSAY OF TROPONIN QUANT (06/04/14) ASSAY THYROID STIM HORMONE (11/07/17) CARDIOVASCULAR STRESS TEST (11/06/17) CHEST X-RAY 1 VIEW FRONTAL (06/04/14) COMPLETE CBC AUTOMATED (11/07/17) COMPLETE CBC W/AUTO DIFF WBC (05/13/19) COMPREHEN METABOLIC PANEL (11/11/18) CREATINE MB FRACTION (06/04/14) CT HEAD/BRAIN W/O DYE (06/04/14) DIAGNOSTIC COLONOSCOPY (06/06/17) ELECTROCARDIOGRAM TRACING (05/13/19) EMERGENCY DEPT VISIT (08/25/18) EMERGENCY DEPT VISIT (06/04/14) EMERGENCY DEPT VISIT (10/14/13) GLYCOSYLATED HEMOGLOBIN TEST (05/13/19) HT MUSCLE IMAGE SPECT MULT (11/06/17) HYDRATE IV INFUSION ADD-ON (06/04/14) IMMUNIZATION ADMIN (08/25/18) INFLUENZA A/B AG IA (06/04/14) LIPID PANEL (11/11/18) METABOLIC PANEL TOTAL CA (05/13/19) ROUTINE VENIPUNCTURE (05/13/19) RPR S/N/AX/GEN/TRNK 2.5CM/< (08/25/18) TDAP VACCINE 7 YRS/> IM (08/25/18) THER/PROPH/DIAG INJ IV PUSH (06/04/14) TX/PRO/DX INJ NEW DRUG ADDON (06/04/14) UR ALBUMIN SEMIQUANTITATIVE (01/02/17) URINALYSIS AUTO W/SCOPE (05/13/19) VIT D 1 25-DIHYDROXY (06/08/15) X-RAY EXAM CHEST 2 VIEWS (10/03/17) X-RAY EXAM OF HAND (10/14/13) Problem List Initiated/Reviewed/Updated: Yes Plan: Assessment and Plan: 1. S/P TURP POD #2.: Management per Dr. Askew. 2. Central sleep apnea: Continue CPAP with sleep 3. HTN: stable on current regimen, will continue to monitor. 4. DM: Diabetic diet and SSI. <Jay Hurst - Last Filed: 05/20/19 11:38> - Patient Data Vitals - Most Recent: Last Vital Signs Temp 36.6 C 05/17/19 15:55 Pulse 68 05/17/19 15:55 Resp 20 05/17/19 15:55 BP 161/81 H 05/17/19 15:55 Pulse Ox 97 05/17/19 15:55 Med Orders - Current: Current Medications Discontinued Medications Bacitracin (Bacitracin Oint) 1 gm TOP TID [facility] Last Admin: 05/17/19 07:42 Dose: 1 gm Belladonna Alkaloids/Opium (B & O Supprettes No. 15a) 1 supp RECTAL Q6H PRN PRN Reason: Bladder Spasms Bisacodyl (Dulcolax) 10 mg RECTAL ONETIME ONE Stop: 05/16/19 10:19 Last Admin: 05/16/19 10:42 Dose: 10 mg Cefazolin Sodium (Ancef) Confirm Administered Dose 2 gm .ROUTE .STK-MED ONE Stop: 05/15/19 07:56 Docusate Sodium (Colace) 100 mg PO BID [facility] Last Admin: 05/17/19 08:55 Dose: 100 mg Ephedrine Sulfate (Ephedrine Sulfate) Confirm Administered Dose 50 mg .ROUTE .STK-MED ONE Stop: 05/15/19 08:38 Fentanyl (Sublimaze) Confirm Administered Dose 100 mcg .ROUTE .STK-MED ONE Stop: 05/15/19 07:14 Lactated Ringer's (Ringers, Lactated) 1,000 mls @ 100 mls/hr IV ASDIRECTED [facility] Last Admin: 05/15/19 07:10 Dose: 100 mls/hr Cefazolin Sodium/Dextrose 2 gm (/ Premix) 50 mls @ 100 mls/hr IV ONCALL ONE Stop: 05/15/19 00:30 Last Admin: 05/15/19 18:17 Dose: Not Given Sodium Chloride (Normal Saline) Confirm Administered Dose 20 mls @ as directed .ROUTE .STK-MED ONE Stop: 05/15/19 07:56 Potassium Chloride/Dextrose/Sod Cl (D5 1/2 Ns W/ 20 Meq/L Kcl) 1,000 mls @ 125 mls/hr IV ASDIRECTED [facility] Lactated Ringer's (Ringers, Lactated) 1,000 mls @ 150 mls/hr IV ASDIRECTED [facility] Last Admin: 05/15/19 11:47 Dose: 150 mls/hr Insulin Aspart (Novolog) 0 unit SUBCUT TIDAC [facility]; Protocol Last Admin: 05/17/19 12:11 Dose: Not Given Lidocaine HCl (Xylocaine-Mpf 1%) Confirm Administered Dose 5 ml .ROUTE .STK-MED ONE Stop: 05/15/19 07:17 Metformin HCl (Glucophage) 1,000 mg PO BID [facility] Last Admin: 05/17/19 08:55 Dose: 1,000 mg Midazolam HCl (Versed 1 Mg/Ml) Confirm Administered Dose 2 mg .ROUTE .STK-MED ONE Stop: 05/15/19 07:14 Nitrofurantoin Macrocrystals (Macrobid) 100 mg PO BID [facility] Stop: 05/17/19 23:59 Last Admin: 05/17/19 08:55 Dose: 100 mg Non-Formulary Medication (Empagliflozin [Jardiance]) 25 mg PO QAM [facility] Last Admin: 05/16/19 09:20 Dose: 25 mg Non-Formulary Medication (Valsartan/Hydrochlorothiazide [Valsartan-Hctz 160- 12.5 Mg Tab]) 1 tab PO DAILY [facility] Last Admin: 05/16/19 09:20 Dose: 1 tab Ondansetron HCl (Zofran) Confirm Administered Dose 4 mg .ROUTE .STK-MED ONE Stop: 05/15/19 07:23 Propofol (Diprivan 20 Ml) Confirm Administered Dose 600 mg .ROUTE .STK-MED ONE Stop: 05/15/19 07:14 Propofol (Diprivan 20 Ml) Confirm Administered Dose 200 mg .ROUTE .STK-MED ONE Stop: 05/15/19 09:14 Consult PN Assessment/Plan Procedures: Procedures ALANINE AMINO (ALT) (SGPT) (09/09/15) ASSAY OF CK (CPK) (06/04/14) ASSAY OF LIPASE (06/04/14) ASSAY OF TROPONIN QUANT (06/04/14) ASSAY THYROID STIM HORMONE (11/07/17) CARDIOVASCULAR STRESS TEST (11/06/17) CHEST X-RAY 1 VIEW FRONTAL (06/04/14) COMPLETE CBC AUTOMATED (11/07/17) COMPLETE CBC W/AUTO DIFF WBC (05/13/19) COMPREHEN METABOLIC PANEL (11/11/18) CREATINE MB FRACTION (06/04/14) CT HEAD/BRAIN W/O DYE (06/04/14) DIAGNOSTIC COLONOSCOPY (06/06/17) ELECTROCARDIOGRAM TRACING (05/13/19) EMERGENCY DEPT VISIT (08/25/18) EMERGENCY DEPT VISIT (06/04/14) EMERGENCY DEPT VISIT (10/14/13) GLYCOSYLATED HEMOGLOBIN TEST (05/13/19) HT MUSCLE IMAGE SPECT MULT (11/06/17) HYDRATE IV INFUSION ADD-ON (06/04/14) IMMUNIZATION ADMIN (08/25/18) INFLUENZA A/B AG IA (06/04/14) LIPID PANEL (11/11/18) METABOLIC PANEL TOTAL CA (05/13/19) ROUTINE VENIPUNCTURE (05/13/19) RPR S/N/AX/GEN/TRNK 2.5CM/< (08/25/18) TDAP VACCINE 7 YRS/> IM (08/25/18) THER/PROPH/DIAG INJ IV PUSH (06/04/14) TX/PRO/DX INJ NEW DRUG ADDON (06/04/14) UR ALBUMIN SEMIQUANTITATIVE (01/02/17) URINALYSIS AUTO W/SCOPE (05/13/19) VIT D 1 25-DIHYDROXY (06/08/15) X-RAY EXAM CHEST 2 VIEWS (10/03/17) X-RAY EXAM OF HAND (10/14/13) Plan: I have reviewed the residents note and agree with I have seen and evaluated the patient and agree with the residents note unless specified in my note
--- NOTE | 2019-05-17 16:37 | DISCH ---
DATE OF DISCHARGE: PRIMARY CARE PHYSICIAN: Savage iBrd M.D. A 63-year-old. He was admitted to the hospital and had a TURP done on 05/15/2019. Postoperatively, he did very well, remained stable and was discharged on the second postop day. On discharge, the urine was slightly red. He is able to void without difficulty and has good urinary control. Pathology still pending. I will be seeing him in 3 days for followup. SADIA WASHINGTON /[id number]
== END 2019-05-17 16:00 | disposition home or self-care (01) ==
LOC: MW.SDS 06:43 → MW.MS 10:21
PROVIDERS: ADMIT Urology; ATTEND Urology
DX: N40.1 Benign prostatic hyperplasia with lower urinary tract symptoms (principal); N13.8 Other obstructive and reflux uropathy; E78.5 Hyperlipidemia, unspecified; I10 Essential (primary) hypertension; E11.9 Type 2 diabetes mellitus without complications; G47.33 Obstructive sleep apnea (adult) (pediatric); M19.042 Primary osteoarthritis, left hand; M19.041 Primary osteoarthritis, right hand; E66.9 Obesity, unspecified; Z68.31 Body mass index [BMI] 31.0-31.9, adult; Z88.8 Allergy status to other drugs, medicaments and biological substances; Z91.048 Other nonmedicinal substance allergy status; Z79.82 Long term (current) use of aspirin; Z79.84 Long term (current) use of oral hypoglycemic drugs; Z99.89 Dependence on other enabling machines and devices
CPT/HCPCS: 36415; 52601; 80051; 82962; 84132; 84295; 85018; 85025; A9270; J0690; J2250; J2405; J2704; J7120; 00914; 88305; G0378; J2001; J3010

== ENCOUNTER 2019-06-03 16:11 | Emergency (ER) | payer OTHER ==
--- NOTE | 2019-06-03 17:35 | EDM.PDOC ---
ED HPI GENERAL MEDICAL PROBLEM - General Chief Complaint: Genitourinary Problem Stated Complaint: TROUBLE URINATING POST SURGERY Time Seen by Provider: 06/03/19 16:38 - History of Present Illness INITIAL COMMENTS - FREE TEXT/NARRATIVE: HISTORY AND PHYSICAL: History of present illness: Patient is a 63-year-old male who presents to the emergency room with complaints of urinary retention. Patient had a TURP done approximately [address] Askew. The did attempt to call their office, but he is on holiday at this time. Patient states since the TURP he has been voiding and not having any postoperative complications. Over the past 2 days he did notice a few small clots in his urine and early this morning did pass a large blood clot. 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 States he typically voids every 1-2 hours which is normal for him. Denies any dysuria but states he does have a sensation of pressure to his low pelvic area. No injury, trauma or recent falls. Patient denies any fever, chills, headache, change in vision, syncope or near syncope. Denies any chest pain, back pain, shortness of breath or cough. Denies any abdominal pain, nausea, vomiting, diarrhea, or constipation. Patient has been eating and drinking appropriately. Review of systems: As per history of present illness and below otherwise all systems reviewed and negative. Past medical history: As per history of present illness and as reviewed below otherwise noncontributory. Surgical history: As per history of present illness and as reviewed below otherwise noncontributory. Social history: See social history for further information Family history: As per history of present illness and as reviewed below otherwise noncontributory. Physical exam: General: Well developed and well nourished 63-year-old male. Alert and oriented. Nontoxic appearing and in no acute distress. HEENT: Atraumatic, normocephalic, pupils equal and reactive bilaterally, negative for conjunctival pallor or scleral icterus, mucous membranes moist, TMs normal bilaterally, throat clear, neck supple, nontender, trachea midline. No drooling or trismus noted. No meningeal signs. No hot potato voice noted. Lungs: Clear to auscultation, breath sounds equal bilaterally, chest nontender. Heart: S1S2, regular rate and rhythm without overt murmur Abdomen: Soft, nondistended, nontender. Negative for masses or hepatosplenomegaly. Negative for costovertebral tenderness. Pelvis: Stable, suprapubic tenderness/fullness. Genitourinary: Normal appearing external genitalia Skin: Intact, warm, dry. No lesions or rashes noted. Extremities: Atraumatic, moves all extremities per self without difficulty or deficits, negative for cords or calf pain. Neurovascular unremarkable. Neuro: Awake, alert, oriented. Cranial nerves II through XII unremarkable. Cerebellum unremarkable. Motor and sensory unremarkable throughout. Exam nonfocal. Notes: Bladder scanner showed [address] Askew is out of the office until . 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 She does have Dr. Askew's cell phone number and states that she will call him if she has any concerns or complaints. A Mccray was placed and irrigated without any clots and has drained the residual urine. Patient states he feels better since Mccray placement. Rocephin IM given here for UTI and a prescription for Cipro. Supportive care measures were reviewed and discussed. Voices understanding and is agreeable to plan of care. Denies any further questions or concerns at this time. Diagnostics: [employer]: Bladder Scan, Mccray Prescription: Cipro BID x 10 days Impression: Urinary Retention UTI Plan: 1. Drain your mccray bag routinely. Increase your oral fluids. Take the antibiotic medication as directed. 2. Dr. Askew will be back in his office on 06/09/2019; but you should be able to call on to talk with nursing staff to set up a follow up appointment. 3. Return to the ED as needed as discussed. Definitive disposition and diagnosis as appropriate pending reevaluation and review of above. - Related Data Allergies Allergy/AdvReac Type Severity Reaction Status Date / Time dashawn inhibitors Allergy Cough Uncoded 05/15/19 12:01 Home Meds: Home Meds Aspirin [Lithonia Aspirin] 81 mg PO DAILY 06/04/14 [History] Potassium Chloride [K-Tab ER] 20 meq PO DAILY 06/04/14 [History] Valsartan/Hydrochlorothiazide [Valsartan-Hctz 160-12.5 mg Tab] 1 tab PO DAILY [History] metFORMIN [Glucophage] 1,000 mg PO BID 06/04/14 [History] Glucosamine/D3/Boswellia Stacy [Osteo Bi-Flex Tablet] 2 tab PO DAILY 06/01/17 [ History] Magnesium 250 mg PO DAILY 06/01/17 [History] Multivitamin [Men's Multi-Vitamin] 1 tab PO DAILY 06/01/17 [History] Tadalafil [Cialis] 20 mg PO ASDIRECTED PRN 06/01/17 [History] Empagliflozin [Jardiance] 25 mg PO QAM 05/13/19 [History] Naproxen Sodium [Aleve] 220 mg PO BID 05/13/19 [History] Pioglitazone HCl 15 mg PO DAILY 05/13/19 [History] Tamsulosin HCl 0.4 mg PO BEDTIME 05/13/19 [History] Past Medical History HEENT History: Reports: Other (See Below) Other HEENT History: wears glasses Cardiovascular History: Reports: Hypertension, Other (See Below) Other Cardiovascular History: hx of Angiogram- no stents Respiratory History: Reports: Sleep Apnea Other Respiratory History: Central Sleep Apnea- uses CPAP Gastrointestinal History: Reports: Colon Polyp, Diverticulosis Genitourinary History: Reports: BPH, Renal Calculus Musculoskeletal History: Reports: Fracture Other Musculoskeletal History: hx of fx ankle x2, arthritis in hands Endocrine/Metabolic History: Reports: Diabetes, Type II, Obesity/BMI 30+ Dermatologic History: Reports: Other (See Below) Other Dermatologic History: currently has a rash on his back- thinks it is from medications - Past Surgical History Head Surgeries/Procedures: Reports: None HEENT Surgical History: Reports: Adenoidectomy, Tonsillectomy GI Surgical History: Reports: Colonoscopy Musculoskeletal Surgical History: Reports: Arthroscopic Knee Social & Family History - Family History Family Medical History: Noncontributory - Tobacco Use Smoking Status *Q: Never Smoker - Recreational Drug Use Recreational Drug Use: No ED ROS GENERAL - Review of Systems Review Of Systems: Comprehensive ROS is negative, except as noted in HPI. ED EXAM, RENAL/ - Physical Exam Exam: See Below (See dictation) Course - Vital Signs Last Recorded V/S: Last Vital Signs Temp 97.3 F 06/03/19 16:31 Pulse 79 06/03/19 16:31 Resp 16 06/03/19 16:31 BP 149/92 H 06/03/19 16:31 Pulse Ox 98 06/03/19 16:31 - Orders/Labs/Meds Orders: Active Orders 24 hr Category Date Time Status Bladder Scan [RC] ASDIRECTED Care 06/03/19 16:15 Active Mccray Catheter Insertion [Insert Urinary Catheter] [OM. Care 06/03/19 17:00 Ordered PC] Q24H Urinary Catheter Assessment [RC] ASDIRECTED Care 06/03/19 16:50 Active Labs: Laboratory Tests 06/03/19 Range/Units 17:20 Urine Color DARK YELLOW Urine Appearance CLOUDY Urine pH 5.0 (5.0-8.0) Ur Specific [place] 1.020 (1.001-1.035) Urine Protein 30 H (NEGATIVE) mg/dL Urine Glucose (UA) >=1000 (NEGATIVE) mg/dL Urine Ketones TRACE H (NEGATIVE) mg/dL Urine Occult Blood LARGE H (NEGATIVE) Urine Nitrite NEGATIVE (NEGATIVE) Urine Bilirubin NEGATIVE (NEGATIVE) Urine Urobilinogen 0.2 (<2.0) EU/dL Ur Leukocyte Esterase NEGATIVE (NEGATIVE) Urine RBC 95-100 (0-2/HPF) Urine WBC 7-10 (0-5/HPF) Ur Epithelial Cells OCCASIONAL (NONE-FEW) Urine Bacteria FEW (NEGATIVE) Urine Mucus LIGHT (NONE-MOD) Meds: Medications Discontinued Medications Generic Name Dose Route Start Last Admin Trade Name Freq PRN Reason Stop Dose Admin Ceftriaxone Sodium 1 gm 06/03/19 17:49 Rocephin IM 06/03/19 17:50 ONETIME ONE Lidocaine HCl 2 ml 06/03/19 17:49 Xylocaine-Mpf 1% INJECT 06/03/19 17:50 ONETIME ONE Departure - Departure Time of Disposition: 17:53 Disposition: Home, Self-Care 01 Clinical Impression: UTI, Urinary tract infectious disease, Urinary retention - Discharge Information Instructions: Urinary Tract Infection, Adult, [id number] Referrals: Savage Bird MD [Primary Care Provider] - Forms: ED Department Discharge Additional Instructions: The following information is given to patients seen in the emergency department who are being discharged to home. This information is to outline your options for follow-up care. We provide all patients seen in our emergency department with a follow-up referral. The need for follow-up, as well as the timing and circumstances, are variable depending upon the specifics of your emergency department visit. If you don't have a primary care physician on staff, we will provide you with a referral. We always advise you to contact your personal physician following an emergency department visit to inform them of the circumstance of the visit and for follow-up with them and/or the need for any referrals to a consulting specialist. The emergency department will also refer you to a specialist when appropriate. This referral assures that you have the opportunity for follow-up care with a specialist. All of these measure are taken in an effort to provide you with optimal care, which includes your follow-up. Under all circumstances we always encourage you to contact your private physician who remains a resource for coordinating your care. When calling for follow-up care, please make the office aware that this follow-up is from your recent emergency room visit. If for any reason you are refused follow-up, please contact the [facility] Emergency Department at and asked to speak to the emergency department charge nurse. [facility] [address] [place] [address] [place] [address] [facility] Specialty Care - Urology [address] [place] [address] 1. Drain your mccray bag routinely. Increase your oral fluids. Take the antibiotic medication as directed. 2. Dr. Askew will be back in his office on 06/09/2019; but you should be able to call on to talk with nursing staff to set up a follow up appointment. 3. Return to the ED as needed as discussed. Sepsis Event Note - Evaluation Sepsis Screening Result: No Definite Risk - Focused Exam Vital Signs: Vital Signs Temp Pulse Resp BP Pulse Ox 06/03/19 16:31 97.3 F 79 16 149/92 H 98 Date Exam was Performed: 06/03/19 Time Exam was Performed: 17:51 - My Orders Last 24 Hours: My Active Orders 06/03/19 16:15 Bladder Scan [RC] ASDIRECTED 06/03/19 16:50 Urinary Catheter Assessment [RC] ASDIRECTED 06/03/19 17:00 Mccray Catheter Insertion [Insert Urinary Catheter] [OM.PC] Q24H - Assessment/Plan Last 24 Hours: My Active Orders 06/03/19 16:15 Bladder Scan [RC] ASDIRECTED 06/03/19 16:50 Urinary Catheter Assessment [RC] ASDIRECTED 06/03/19 17:00 Mccray Catheter Insertion [Insert Urinary Catheter] [OM.PC] Q24H
[2019-06-03] MEDS ORDERED: cefTRIAXone 1 GM Vial IM ONE (17:49)
[2019-06-03] MEDS ORDERED: Lidocaine 1% PF 2 ML SDV INJECT ONE (17:49)
== END 2019-06-03 18:40 | disposition home or self-care (01) ==
LOC: MW.ED 16:11
DX: R33.9 Retention of urine, unspecified (principal); N39.0 Urinary tract infection, site not specified; E11.9 Type 2 diabetes mellitus without complications; E66.9 Obesity, unspecified; I10 Essential (primary) hypertension; Z79.84 Long term (current) use of oral hypoglycemic drugs; Z79.899 Other long term (current) drug therapy; Z88.8 Allergy status to other drugs, medicaments and biological substances
CPT/HCPCS: 51702; 51798; 81001; 96372; 99283; J0696; J2001

== ENCOUNTER 2019-06-09 17:41 | Observation (INO) | payer OTHER ==
[2019-06-09] MEDS ORDERED: Sodium Chloride 0.9% 2.5 ML Syringe FLUSH PRN (18:01)
[2019-06-09] MEDS ORDERED: Sodium Chloride 0.9% 10 ML Syringe FLUSH PRN (18:01)
[2019-06-09] MEDS ORDERED: Ciprofloxacin 500 MG Tab PO SCH (18:15)
[2019-06-09] MEDS ORDERED: Lactated Ringers 1,000 ML IV SCH (18:15)
[2019-06-09 18:51] LABS: CARBON DIOXIDE,CO2 24.6 mmol/L (21.0-32.0)
[2019-06-09] MEDS: Lactated Ringers 1,000 ML IV SCH (18:52)
[2019-06-09] MEDS ORDERED: HYDROmorphone 2 MG/ML Syringe IVPUSH ONE (19:16)
[2019-06-09] MEDS: Ciprofloxacin 500 MG Tab PO SCH (20:35)
[2019-06-09] MEDS: Tamsulosin 0.4 MG Cap.ER PO SCH (20:35)
[2019-06-09] MEDS: Insulin Aspart 100 Units/ML 3 ML Pen SUBCUT SCH (20:46)
[2019-06-09] MEDS: metFORMIN 500 MG Tab PO SCH (23:14)
[2019-06-10] MEDS: Acetaminophen/HYDROcodone 325-5 MG Tab PO PRN ×3 (00:05→08:55)
[2019-06-10] MEDS: Insulin Aspart 100 Units/ML 3 ML Pen SUBCUT SCH ×4 (07:26→21:48)
[2019-06-10] MEDS: Lactated Ringers 1,000 ML IV SCH ×2 (07:43→21:43)
[2019-06-10] MEDS: metFORMIN 500 MG Tab PO SCH ×2 (08:53→21:40)
[2019-06-10] MEDS: Pioglitazone 15 MG Tab PO SCH (08:54)
[2019-06-10] MEDS: Multivitamin Tab PO SCH (08:54)
[2019-06-10] MEDS: Aspirin 81 MG Tab.Chew PO SCH (08:54)
[2019-06-10] MEDS: Ciprofloxacin 500 MG Tab PO SCH ×2 (08:55→21:40)
[2019-06-10] MEDS ORDERED: Ciprofloxacin 500 MG Tab PO SCH (09:00)
[2019-06-10] MEDS: Tamsulosin 0.4 MG Cap.ER PO SCH (21:40)
[2019-06-11] MEDS: Insulin Aspart 100 Units/ML 3 ML Pen SUBCUT SCH ×2 (07:49→11:49)
[2019-06-11] MEDS: Ciprofloxacin 500 MG Tab PO SCH (09:04)
[2019-06-11] MEDS: Pioglitazone 15 MG Tab PO SCH (09:04)
[2019-06-11] MEDS: Multivitamin Tab PO SCH (09:05)
[2019-06-11] MEDS: Aspirin 81 MG Tab.Chew PO SCH (09:05)
[2019-06-11] MEDS: Lactated Ringers 1,000 ML IV SCH (11:00)
[2019-06-11] MEDS ORDERED: TADALAFIL 10 MG PO PRN (12:57)
[2019-06-11] MEDS: metFORMIN 500 MG Tab PO SCH (13:16)
--- NOTE | 2019-06-11 13:19 | DISCH ---
DATE OF DISCHARGE: PRIMARY CARE PHYSICIAN: Unknown PCP A 63-year-old who was admitted to the hospital with post TURP bleeding and clot retention day before yesterday. He was started on TUR drip and traction was applied. That was kept overnight. The following day, the urine was reasonably clear, significantly better than what it was before the traction was applied. His hemoglobin at the time of admission was 16.5. He was kept another day. The urine remained reasonably clear, and he is sent home. The catheter had been taken out yesterday. He is instructed on high fluid intake. He is to stay off aspirin and off naproxen. He is to continue his diabetic medications as he has been doing at home. He does not need any more antibiotics. He is to see me as needed. SADIA / FELIX /[id number]
[2019-06-12] MEDS ORDERED: POTASSIUM CHLORIDE 20 MEQ PO SCH (09:00)
[2019-06-12] MEDS ORDERED: HYDROCHLOROTHIAZIDE PO SCH (09:00)
[2019-06-12] MEDS ORDERED: VALSARTAN PO SCH (09:00)
== END 2019-06-11 14:30 | disposition home or self-care (01) ==
LOC: MW.MS 17:52 → UNDOADMOB 17:52
PROVIDERS: ADMIT Urology; ATTEND Urology
DX: N99.820 Postprocedural hemorrhage of a genitourinary system organ or structure following a genitourinary system procedure (principal); Z90.79 Acquired absence of other genital organ(s)
CPT/HCPCS: 36415; 51702; 80048; 82962; 85025; 96361; 96374; A9270; G0378; J1170; J7120; J1815-GY

== ENCOUNTER 2022-12-26 07:26 | Day surgery (SDC) | payer BC ==
[~2022-12-26 07:26] MED LIST changes: +Sodium Chloride 0.9% 10 ML Syringe FLUSH PRN; +Sodium Chloride 0.9% 2.5 ML Syringe FLUSH PRN; +Sodium Chloride 0.9% 20 ML SDV IV PRN; -ceFAZolin 2 GM in Premix Bag 1 BAG IV ONE
[2022-12-26] MEDS ORDERED: Lidocaine 2% 5 ML SDV ONE (07:31)
[2022-12-26] MEDS ORDERED: fentaNYL 100 MCG/2 ML SDV ONE (07:31)
[2022-12-26] MEDS ORDERED: Propofol 200 MG/20 ML SDV ONE (07:31)
== END 2022-12-26 09:35 | disposition home or self-care (01) ==
LOC: MW.SDS 07:26
PROVIDERS: ATTEND Surgery
DX: K57.30 Diverticulosis of large intestine without perforation or abscess without bleeding (principal); N40.0 Benign prostatic hyperplasia without lower urinary tract symptoms; E66.9 Obesity, unspecified; G47.31 Primary central sleep apnea; E11.42 Type 2 diabetes mellitus with diabetic polyneuropathy; E78.5 Hyperlipidemia, unspecified; I10 Essential (primary) hypertension; E78.1 Pure hyperglyceridemia; Z86.010 Personal history of colon polyps; Z88.8 Allergy status to other drugs, medicaments and biological substances; Z79.82 Long term (current) use of aspirin; Z79.84 Long term (current) use of oral hypoglycemic drugs; Z79.899 Other long term (current) drug therapy; Z79.85 Long-term (current) use of injectable non-insulin antidiabetic drugs
CPT/HCPCS: 45378; J2704; J3010; J7120; 00812; J3490